=== PATIENT | female | born 1950 | race Caucasian/White ===

== ENCOUNTER 2018-05-03 20:12 | Inpatient (IN) | payer MEDICARE, BC ==
[~2018-05-03] VITALS: Ht 157.5 cm; Wt 80.9 kg
[2018-05-03] MEDS ORDERED: EFFEXOR37.5 MG PO (20:22)
[2018-05-03] MEDS ORDERED: GLUCOPHAGE500 MG PO (20:22)
[2018-05-03] MEDS ORDERED: SYNTHROID50 MCG PO (20:22)
[2018-05-03] MEDS ORDERED: IMITREX50 MG (20:23)
[2018-05-03] MEDS ORDERED: GABAPENTIN100 MG PO (20:23)
[2018-05-03] MEDS ORDERED: COREG6.25 MG PO (20:23)
[2018-05-03] MEDS ORDERED: LOPID600 MG PO (20:23)
[2018-05-03 21:35] LABS: BASOPHILS 0 % (0-2); EOSINOPHILS 0.5 % (0-7); HEMATOCRIT 35.3 % (36.0-48.0); IMMATURE GRANULOCYTES 0.2 % (0-5); LYMPHOCYTES 30.6 % (15-50); MCV 91.2 fL (80.0-100.0); MEAN PLATELET VOLUME 9.7 fL (7.4-10.4); MONOCYTES 8.1 % (2-11); NEUTROPHILS 60.6 % (40-80); PLATELET COUNT 244 10x3/uL (130-400); RBC 3.87 10x6/uL (4.00-5.40); RDW 13.1 % (11.5-14.5); WBC 6.2 10x3/uL (4.8-10.8)
[2018-05-03 21:39] LABS: APTT 24.8 SECONDS (22.8-39.4); INR 1.11 (0.85-1.17); PROTIME 13.8 SECONDS (11.6-15.0)
[2018-05-03 21:51] LABS: ALBUMIN 3.9 g/dL (3.4-5.0); ANION GAP 13.9 mmol/L (8-16); BILIRUBIN - TOTAL 0.42 mg/dL (0.2-1.3); CALCIUM 8.9 mg/dL (8.5-10.1); CARBON DIOXIDE 28.8 mmol/L (21.0-32.0); POTASSIUM - SERUM 3.7 mmol/L (3.5-5.1)
[2018-05-03 22:01] LABS: APPEARANCE CLEAR (CLEAR); BILIRUBIN NEGATIVE (NEGATIVE); COLOR YELLOW (YELLOW); GLUCOSE NEGATIVE (NEGATIVE); KETONE NEGATIVE (NEGATIVE); NITRITE NEGATIVE (NEGATIVE); PROTEIN NEGATIVE (NEGATIVE); UROBILINOGEN NORMAL (NORMAL)
[2018-05-03 22:29] VITALS: BP 150/80; Ht 157.5 cm; Wt 80.9 kg
--- NOTE | 2018-05-03 22:30 | NUR ---
RECIEVED PT TO FLOOR VIA STRETCHER. AT BEDSIDE. ADMITTED FOR PELVIC FX. PT UNABLE TO WALK WELL BECAUSE SHE IS UNABLE TO REALLY MOVE LEFT LEG. PT RECIEVING MORPHINE FOR PAIN 6/10 IN GROIN AREA, LOWER BACK AND LEFT HIP. IV RIGHT AC SL. DRESSING CDI, FLUSHES WELL. DENIES ANY COMPLAINTS OR NEEDS AT THIS TIME. CL IN REACH, WILL CONT TO MONITOR
[2018-05-04] VITALS: BP 150/80
[2018-05-04 04:00] VITALS: BP 105/59
--- NOTE | 2018-05-04 08:21 | NUR ---
LAYING FLAT IN BED, EVEN UNLABORED BREATHING, APPLIED ICE TO LEFT HIP, C/O PAIN IN LEFT HIP, PROVIDED ORAL HYDRATION, DENIES ANY OTHER NEEDS OR DISCOMFORTS, BED LOWERED AND LOCKED, CALL LIGHT WITHIN REACH. CPOC
[2018-05-04 08:42] VITALS: BP 94/31
[2018-05-04 08:47] LABS: BASOPHILS 0.2 % (0-2); EOSINOPHILS 1.5 % (0-7); HEMATOCRIT 34.9 % (36.0-48.0); HEMOGLOBIN 11.7 g/dL (12-16); IMMATURE GRANULOCYTES 0.2 % (0-5); LYMPHOCYTES 35.3 % (15-50); MCH 30.7 pg (26.0-34.0); MCHC 33.5 g/dL (31.0-37.0); MCV 91.6 fL (80.0-100.0); MEAN PLATELET VOLUME 9.8 fL (7.4-10.4); MONOCYTES 8.2 % (2-11); NEUTROPHILS 54.6 % (40-80); PLATELET COUNT 235 10x3/uL (130-400); RBC 3.81 10x6/uL (4.00-5.40); RDW 13.4 % (11.5-14.5); WBC 5.2 10x3/uL (4.8-10.8)
[2018-05-04 08:59] LABS: ANION GAP 13.5 mmol/L (8-16); CALCIUM 8.2 mg/dL (8.5-10.1); CARBON DIOXIDE 29.1 mmol/L (21.0-32.0); POTASSIUM - SERUM 3.6 mmol/L (3.5-5.1)
--- NOTE | 2018-05-04 09:31 | NUR ---
PATIENT WITH PELVIS FX AND ON BEDREST PER ORDER. SCD ORDERED PER POLICY/PROTOCOL FOR PATIENT.
--- NOTE | 2018-05-04 10:31 | NUR ---
DR. DAVIS ORDERED X-RAY OF THE ACETABULUM, AFTER SPEAKING WITH RADIOLOGY RECOMMENDED A CT OF THE HIP FOR A MORE DETAILED FEW, DR. DAVIS STATED HE WAS OKAY WITH EITHER ONE, BUT HE WILL NEED THAT BEFORE HE CAN FULLY CONSULT HER AND MAKE RECOMMENDATIONS FOR PLAN OF CARE.
[2018-05-04 11:08] LABS: % SATURATION 27 % (15-55); IRON 73 ug/dl (35-150); TOTAL IRON BIND CAPACITY 264 ug/dl (260-445); UNSAT IRON BIND CAPACITY 191 ug/dl (150-375)
[2018-05-04 13:36] VITALS: BP 128/67
[2018-05-04 17:42] VITALS: BP 148/69
--- NOTE | 2018-05-04 19:45 | NUR ---
PT LYING FLAT IN BED, NO SIGNS OF DISTRESS. ALERT AND ORIENTED. BS 114, NO COVERAGE PER SS. PT DENIES PAIN AT THIS TIME UNLESS SHE STARTS MOVING AROUND. PAIN 2/10. ASSISTING PT UP TO BATHROOM W/ WALKER. NO OTHER NEEDS. CL IN REACH, WILL CONTINUE TO MONITOR
[2018-05-04 21:20] VITALS: BP 143/65
[2018-05-05] VITALS (7 sets, daily range): BP systolic 120–164; BP diastolic 41–74
--- NOTE | 2018-05-05 01:30 | NUR ---
PT STATES PAIN 10/25. GAVE MORPHINE ORDERED W/ ZOFRAN. PT STATES PAIN MEDICATION MAKES HER NAUSEAS W/O IT
[2018-05-05 04:56] LABS: BASOPHILS 0 % (0-2); EOSINOPHILS 1.8 % (0-7); HEMATOCRIT 33.8 % (36.0-48.0); HEMOGLOBIN 11.3 g/dL (12-16); IMMATURE GRANULOCYTES 0.2 % (0-5); LYMPHOCYTES 33.7 % (15-50); MCH 30.9 pg (26.0-34.0); MCHC 33.4 g/dL (31.0-37.0); MCV 92.3 fL (80.0-100.0); MEAN PLATELET VOLUME 9.9 fL (7.4-10.4); MONOCYTES 7.5 % (2-11); NEUTROPHILS 56.8 % (40-80); PLATELET COUNT 235 10x3/uL (130-400); RBC 3.66 10x6/uL (4.00-5.40); RDW 13.3 % (11.5-14.5)
[2018-05-05 05:03] LABS: ANION GAP 12.5 mmol/L (8-16); CALCIUM 8.3 mg/dL (8.5-10.1); CARBON DIOXIDE 29.1 mmol/L (21.0-32.0); CREATININE - SERUM 0.9 mg/dL (0.6-1.3); POTASSIUM - SERUM 3.6 mmol/L (3.5-5.1)
--- NOTE | 2018-05-05 08:22 | NUR ---
PT RESTING IN BED. RESP EVEN AND UNLABORED. SALINE LOC TO RIGHT AC, PATENT WITHOUT REDNESS OR EDEMA. REPORTS PAIN TO LEFT HIP 08/25, BUT DENIES WISHES FOR MORPHINE. PT REQUESTING ORAL PAIN MED. INFORMED PT THAT STAFF WOULD NOTIFY MD REGARDING ORAL PAIN MED. PT DENIES FURTHER NEEDS AT THIS TIME. CL WITHIN REACH. ENCOURAGED TO CALL WITH NEEDS. CONTINUE POC.
--- NOTE | 2018-05-05 09:14 | NUR ---
PT REPORTS PAIN 10/10 AT THIS TIME, REQUESTING MORPHINE PAIN MEDICATION. ADMINISTERED PER MD ORDERS. INFORMED PT THAT STAFF HAD CONTACTED MD AND AWAITING CALL BACK FOR NEW ORDERS. PT VOICED UNDERSTANDING. WILL CONTINUE TO MONITOR.
--- NOTE | 2018-05-05 12:03 | NUR ---
PT BS TAKEN. 167. PT REFUSES PRN INSULIN AT THIS TIME.
--- NOTE | 2018-05-05 12:16 | NUR ---
Rehab Prescreening Consult recieved and the patient was visited. She meets criteria and agrees to participate in the required therapy. She will be accepted when the physician feels appropriate. Discussed with the CM and the HOT WORT SETTLER. Milvia Joe RN Clinical Liaison, Rehab
[2018-05-05] MEDS ORDERED: COLACE100 MG PO (13:36)
[2018-05-05] MEDS ORDERED: DURAGESIC1 PATCH .4 TRANSDERM (13:36)
[2018-05-05] MEDS ORDERED: MIRALAX17 GM PO (13:36)
[2018-05-05] MEDS ORDERED: HUMULIN REG INJ [BKC SC (13:36)
[2018-05-05] MEDS ORDERED: Morphine Sulfate IV (13:38)
[2018-05-05] MEDS ORDERED: NORCO-7.5 PO (13:38)
--- NOTE | 2018-05-05 14:10 | NUR ---
ASSISTED PT FROM BED TO BATHROOM AND BACK TO BED WITH WALKER NO WEIGHT BEARING TO THE LEFT LOWER EXTREMITY. PT DAVID WELL. WILL CONTINUE TO MONITOR.
--- NOTE | 2018-05-05 14:15 | MORECARE ---
CASE MANAGEMENT DISCHARGE SUMMARY PATIENT: ANDREAS LARSEN UNIT: [id number] ADM DATE: 05/03/18 AGE: 67 : 51 SEX: F ROOM/BED: D.2209 AUTHOR: JITENDRA MARTIN PHYSICIAN: REFERRING PHYSICIAN: CHRISTINA STROUD MD DATE OF SERVICE: 05/05/18 Discharge Plan Patient Name: ANDREAS LARSEN [facility] [facility] 1950 Planned Disposition: Inpatient Rehab Anticipated Discharge Date: Discharge Date: Expected LOS: Initial Reviewer: [email or web address] Initial Review Date: 05/03/2018 Generated: 05/05/18 3:15 pm DCPIA - Discharge Planning Initial Assessment Updated by [email or web address]: Talisha Wren on 05/05/18 2:13 pm * Is the patient Alert and Oriented? Yes * How many steps to enter\exit or inside your home? * PCP ROBERTO * Pharmacy [facility] [address] * Preadmission Environment Home with Family * ADLs Independent * Equipment None * List name and contact numbers for known caregivers / representatives who currently or will assist patient after discharge: MARYAM LARSEN () [phone] * Verbal permission to speak to the caregivers and representatives has been obtained from the patient. N/A * Community resources currently utilized None * Additional services required to return to the preadmission environment? Yes * Can the patient safely return to the preadmission environment? No * Has this patient been hospitalized within the prior 30 days at any hospital? No Patient Name: ANDREAS LARSEN Page [id number] at 1415 All edits/amendments must be made on the electronic document DICTATION DATE: 05/05/181413 RIDING COACH: WILFRED 05/05/18 141 RPT#: [id number] DC DATE: STATUS: ADM IN [facility] [address] [place] [address] END OF REPORT
--- NOTE | 2018-05-05 14:24 | MORECARE ---
CASE MANAGEMENT DISCHARGE SUMMARY PATIENT: ANDREAS LARSEN UNIT: [id number] ADM DATE: 05/03/18 AGE: 67 : 51 SEX: F ROOM/BED: D.2209 AUTHOR: VERONICADOC PHYSICIAN: REFERRING PHYSICIAN: CHRISTINA STROUD MD DATE OF SERVICE: 05/05/18 Discharge Plan Patient Name: ANDREAS LARSEN Facility: [facility]:[place] : 1950 Planned Disposition: Inpatient Rehab Anticipated Discharge Date: Discharge Date: Expected LOS: Initial Reviewer: [email or web address] Initial Review Date: 05/03/2018 Generated: 05/05/18 3:24 pm Comments DCP- Discharge Planning Updated by [email or web address]: Talisha Wren on 05/05/18 1:[address] Patient Name: ANDREAS LARSEN Admission Status: ER Accout number: [id number] Admission Date: 05-03-2018 : 1950 Admission Diagnosis: Attending: CHRISTINA STROUD Current LOS: 2 Anticipated DC Date: Planned Disposition: Inpatient Rehab Primary Insurance: MEDICARE A & B Discharge Planning Comments: CM met with patient to complete initial dc planning assessment. CM educated patient on the CM role and verbal consent given by patient to complete assessment. Patient lives at home with her where she was independent with her care. At discharge patient plans to go to [facility] inpatient rehab and feels this is a safe discharge. Patient luo not use or have any DME and will need a walker when she is discharged. Her will be her hire car driver home at [place]. Patient denied known discharge needs at this time. CM will continue to follow and will assist as needed with dc plans/needs. Gift Shop Clerk: Talisha Wren DCPIA - Discharge Planning Initial Assessment Updated by [email or web address]: aTlisha Wren on 05/05/18 2:13 pm * Is the patient Alert and Oriented? Yes * How many steps to enter\exit or inside your home? * PCP ROBERTO * Pharmacy [facility] [address] * Preadmission Environment Home with Family * ADLs Independent * Equipment None * List name and contact numbers for known caregivers / representatives who currently or will assist patient after discharge: MARYAM LARSEN () [phone] * Verbal permission to speak to the caregivers and representatives has been obtained from the patient. N/A * Community resources currently utilized None * Additional services required to return to the preadmission environment? Yes * Can the patient safely return to the preadmission environment? No * Has this patient been hospitalized within the prior 30 days at any hospital? No Last DP export: 05/05/18 1:15 p Patient Name: ANDREAS LARSEN Page [id number] at 1424 All edits/amendments must be made on the electronic document DICTATION DATE: 05/05/181422 CORE PILER: WILFRED 05/05/18 142 RPT#: [id number] DC DATE: STATUS: ADM IN [facility] [address] [place] [address] END OF REPORT
--- NOTE | 2018-05-05 16:37 | NUR ---
OT NOTE: PT COMPLETED BUE AROM EXS. PT COMPLETED SIDE ROLLING WITH EXTENDED TIME. PT COMPLETED HYGIENE TASK WITH SET UP. THANK YOU, JETHRO CAMPUZANO
--- NOTE | 2018-05-05 20:15 | NUR ---
REPORTS PAIN. INFORMED PT SHE WAS EXPECTED TO GO TO REHAB IN AM AND IT WOULD BE [place] TO TRY PO PAIN MEDS TO ASSESS FOR ADEQUATE PAIN CONTROL. PT AGREED. WILL CONTINUE TO MONITOR.
[2018-05-06 01:38] VITALS: BP 135/73
--- NOTE | 2018-05-06 04:08 | NUR ---
RESTING IN BED RESPRATION EVEN AND UNLABORED CALL LIGHT IN REACH NO S/S OF DISTRESS.
[2018-05-06 05:03] VITALS: BP 124/65
[2018-05-06 07:23] LABS: BASOPHILS 0 % (0-2); EOSINOPHILS 1.6 % (0-7); HEMATOCRIT 32.8 % (36.0-48.0); HEMOGLOBIN 10.9 g/dL (12-16); IMMATURE GRANULOCYTES 0.2 % (0-5); LYMPHOCYTES 35.3 % (15-50); MCH 30.6 pg (26.0-34.0); MCHC 33.2 g/dL (31.0-37.0); MCV 92.1 fL (80.0-100.0); MEAN PLATELET VOLUME 9.2 fL (7.4-10.4); MONOCYTES 11.4 % (2-11); NEUTROPHILS 51.5 % (40-80); PLATELET COUNT 188 10x3/uL (130-400); RBC 3.56 10x6/uL (4.00-5.40); RDW 13.1 % (11.5-14.5); WBC 4.3 10x3/uL (4.8-10.8)
[2018-05-06 07:31] LABS: ANION GAP 12.3 mmol/L (8-16); CALCIUM 8.3 mg/dL (8.5-10.1); CARBON DIOXIDE 29.5 mmol/L (21.0-32.0); CREATININE - SERUM 0.9 mg/dL (0.6-1.3); POTASSIUM - SERUM 3.8 mmol/L (3.5-5.1)
--- NOTE | 2018-05-06 08:10 | NUR ---
PT RESTING IN BED NO ACUTE DISTRESS NOTED. LEFT ARM IN SLING. DRESSING TO LEFT SHOULDER C/D/I. BRUISING NOTED TO LEFT UPPER EXTREMITY. REPORTS PAIN 4/10 AT THIS TIME, DENYING NEED FOR PAIN MEDICATION. IV TO RIGHT UPPER ARM SALINE LOC'D AT THIS TIME, EASILY FLUSHES, GOOD BLOOD RETURN. SCD'S ON BILATERALLY. DENIES FURTHER NEEDS AT THIS TIME. CL WITHIN REACH. ENCOURAGED TO CALL WITH NEEDS. CONTINUE POC
--- NOTE | 2018-05-06 08:33 | NUR ---
PT RESTING QUIETLY IN BED HAVING BREAKFAST. NO ACUTE DISTRESS NOTED. REPORTS PAIN 3/10 AT THIS TIME WHEN NOT MOVING OR AMBULATING. SALINE LOC TO RIGHT AC INTACT, SITE WITHOUT REDNESS OR EDEMA. DENIES FURTHER NEEDS AT THIS TIME. CL WITHIN REACH. ENCOURAGED TO CALL WITH NEEDS. CONTINUE POC
[2018-05-06 08:51] VITALS: BP 117/49
[2018-05-06 09:17] LABS: FOLATE (FOLIC ACID) - SERUM 15.6 ng/mL (>3.0)
--- NOTE | 2018-05-06 09:59 | NUR ---
PT REPORTS PAIN 5/10 AT THIS TIME AFTER AMBULATIN TO AND FROM RESTROOM. ORAL PAIN MEDICATION ADMINISTERED PER MD ORDERS. DENIES FURTHER NEEDS AT THIS TIME. ENCOURAGED TO CALL WITH NEEDS. WILL CONTINUE TO MONITOR.
--- NOTE | 2018-05-06 10:01 | NUR ---
PT RESTING IN BED. C/O PAIN TO LEFT SHOULDER VOICING PAIN 09/24 AT THIS TIME. PAIN MEDICATION ADMINISTERED PER MD ORDERS. WILL CONTINUE TO MONITOR.
--- NOTE | 2018-05-06 11:32 | NUR ---
PT BS TAKEN AT THIS TIME. RESTING IN BED WITH FAMILY AT BEDSIDE. VOICES PAIN 3/10 AT THIS TIME. DENIES FURTHER NEEDS AT THIS TIME. CL WITHIN REACH. ENCOURAGED TO CALL WITH NEEDS. CONTINUE TO MONITOR.
--- NOTE | 2018-05-06 11:45 | NUR ---
OT NOTE: PT PERFORMED BED MOB WITH MOD ASSIST FOR INITIAL SUPINE TO SIT; AMB TO BATHROOM WITH WALKER AND MIN ASSIST. REPORTS PAIN 7/10 AT THIS TIME. ABLE TO PERFORM TOILETING WITH MIN ASSIST; ABLE TO PERFORM FULL SHOWER WITH MIN ASSIST; AMB BACK TO BED WITH MIN ASSIST AND USE OF WALKER. GROOMING WITH SET UP; MOD ASSIST WITH DONNING SOCKS. ANTIONETTE SHERWOOD, OTR/L
--- NOTE | 2018-05-06 11:54 | NUR ---
PT SALINE LOC D/C'D FROM RIGHT AC IN PREPARATION TO D/C TO REHAB. CATH INTACT. DISCHARGE INSTRUCTIONS GIVEN WITH MEDICATION REC. ALL PERSONAL BELONGINGS BEING PACKED BY SPOUSE TO BE TRANSFERED WITH PT. DENIES QUESTIONS OR CONCERNS AT THIS TIME.
--- NOTE | 2018-05-06 13:16 | MORECARE ---
CASE MANAGEMENT DISCHARGE SUMMARY PATIENT: ANDREAS LARSEN UNIT: [id number] ADM DATE: 05/03/18 AGE: 67 : 51 SEX: F ROOM/BED: D.2209 AUTHOR: VERONICADOC PHYSICIAN: REFERRING PHYSICIAN: CHRISTINA STROUD MD DATE OF SERVICE: 05/06/18 Discharge Plan Patient Name: ANDREAS LARSEN Facility: [facility]:[place] : 1950 Planned Disposition: Inpatient Rehab Anticipated Discharge Date: Discharge Date: 05/06/2018 Expected LOS: Initial Reviewer: [email or web address] Initial Review Date: 05/03/2018 Generated: 05/06/18 2:16 pm Comments DCP- Discharge Planning Updated by [id number]: Talisha Wren on 05/06/18 12:[address] patient discharging to inpatient rehab @ [facility] imm served and explained DCP- Discharge Planning Updated by [email or web address]: Talisha Wren on 05/05/18 1:[address] Patient Name: ANDREAS LARSEN Admission Status: ER Accout number: [id number] Admission Date: 05-03-2018 : 1950 Admission Diagnosis: Attending: CHRISTINA STROUD Current LOS: 2 Anticipated DC Date: Planned Disposition: Inpatient Rehab Primary Insurance: MEDICARE A & B Discharge Planning Comments: CM met with patient to complete initial dc planning assessment. CM educated patient on the CM role and verbal consent given by patient to complete assessment. Patient lives at home with her where she was independent with her care. At discharge patient plans to go to [facility] inpatient rehab and feels this is a safe discharge. Patient luo not use or have any DME and will need a walker when she is discharged. Her will be her guard driver home at [place]. Patient denied known discharge needs at this time. CM will continue to follow and will assist as needed with dc plans/needs. Human Resources Hr Representative: Talisha Wren DCPIA - Discharge Planning Initial Assessment Updated by [email or web address]: Talisha Wren on 05/05/18 2:13 pm * Is the patient Alert and Oriented? Yes * How many steps to enter\exit or inside your home? * PCP ROBERTO * Pharmacy [facility] [address] * Preadmission Environment Home with Family * ADLs Independent * Equipment None * List name and contact numbers for known caregivers / representatives who currently or will assist patient after discharge: MARYAM LARSEN () [phone] * Verbal permission to speak to the caregivers and representatives has been obtained from the patient. N/A * Community resources currently utilized None * Additional services required to return to the preadmission environment? Yes * Can the patient safely return to the preadmission environment? No * Has this patient been hospitalized within the prior 30 days at any hospital? No Coverage Notice Reviewer: [email or web address] Aby Wren Notice Issued Date-Time: 05/06/2018 10:45 Notice Type: IM Discharge Notice Notice Delivered To: Patient Relationship to Patient: Devil Tender Name: Delivery Method: - Kristine Days: Prior Verbal Notification: Recipient Understood Notice: Recipient Signature: Med Rec Note Co-signed by Attending: Coverage Notice Comment: Last DP export: 05/05/18 1:24 p Patient Name: ANDREAS LARSEN Page [id number] at 1316 All edits/amendments must be made on the electronic document DICTATION DATE: 05/06/18 1316 TECHNICAL MANAGER CHEMICAL PLANT: WILFRED 05/06/18 1316 RPT#: [id number] DC DATE:05/06/18 STATUS: DIS IN [facility] [address] [place] [address] END OF REPORT
--- NOTE | 2018-05-07 17:49 | MORECARE ---
CASE MANAGEMENT DISCHARGE SUMMARY PATIENT: ANDREAS LARSEN UNIT: [id number] ADM DATE: 05/03/18 AGE: 67 : 51 SEX: F ROOM/BED: D.2209 AUTHOR: JITENDRA MARTIN PHYSICIAN: REFERRING PHYSICIAN: CHRISTINA STROUD MD DATE OF SERVICE: 05/07/18 Discharge Plan Patient Name: ANDREAS LARSEN Facility: [facility]:[place] : 1950 Planned Disposition: Inpatient Rehab Anticipated Discharge Date: Discharge Date: 05/06/2018 Expected LOS: 0 Initial Reviewer: [email or web address] Initial Review Date: 05/03/2018 Generated: 05/07/18 6:49 pm Comments DCP- Discharge Planning Updated by [email or web address]: Talisha Wren on 05/06/18 12:[address] patient discharging to inpatient rehab @ [facility] imm served and explained DCP- Discharge Planning Updated by [email or web address]: Talisha Wren on 05/05/18 1:[address] Patient Name: ANDREAS LARSEN Admission Status: ER Accout number: [id number] Admission Date: 05-03-2018 : 1950 Admission Diagnosis: Attending: CHRISTINA STROUD Current LOS: 2 Anticipated DC Date: Planned Disposition: Inpatient Rehab Primary Insurance: MEDICARE A & B Discharge Planning Comments: CM met with patient to complete initial dc planning assessment. CM educated patient on the CM role and verbal consent given by patient to complete assessment. Patient lives at home with her where she was independent with her care. At discharge patient plans to go to [facility] inpatient rehab and feels this is a safe discharge. Patient luo not use or have any DME and will need a walker when she is discharged. Her will be her driver medic home at [place]. Patient denied known discharge needs at this time. CM will continue to follow and will assist as needed with dc plans/needs. Rotary Cutter Feeder: Talisha Wren DCPIA - Discharge Planning Initial Assessment Updated by [email or web address]: Talisha Wren on 05/05/18 2:13 pm * Is the patient Alert and Oriented? Yes * How many steps to enter\exit or inside your home? * PCP ROBERTO * Pharmacy [facility] [address] * Preadmission Environment Home with Family * ADLs Independent * Equipment None * List name and contact numbers for known caregivers / representatives who currently or will assist patient after discharge: MARYAM LARSEN () [phone] * Verbal permission to speak to the caregivers and representatives has been obtained from the patient. N/A * Community resources currently utilized None * Additional services required to return to the preadmission environment? Yes * Can the patient safely return to the preadmission environment? No * Has this patient been hospitalized within the prior 30 days at any hospital? No Coverage Notice Reviewer: [email or web address] Aby Wren Notice Issued Date-Time: 05/06/2018 10:45 Notice Type: IM Discharge Notice Notice Delivered To: Patient Relationship to Patient: Bioinformatician Name: Delivery Method: - Kristine Days: Prior Verbal Notification: Recipient Understood Notice: Recipient Signature: Med Rec Note Co-signed by Attending: Coverage Notice Comment: Last DP export: 05/06/18 12:16 p Patient Name: ANDREAS LARSEN Page [id number] at 1749 All edits/amendments must be made on the electronic document DICTATION DATE: 05/07/181748 CONTINUOUS WASHER OPERATOR: WILFRED 05/07/181748 RPT#: [id number] DC DATE:05/06/18 STATUS: DIS IN [facility] [address] [place] [address] END OF REPORT
== END 2018-05-06 12:32 | DRG 536 ==
LOC: D.ER 20:12 → D.MS 21:12
PROVIDERS: Emergency Medicine; ADMIT Internal Medicine Nephrology
DX: S32.512A Fracture of superior rim of left pubis, initial encounter for closed fracture (principal); W19.XXXA Unspecified fall, initial encounter; I10 Essential (primary) hypertension; E11.9 Type 2 diabetes mellitus without complications; D64.9 Anemia, unspecified

== ENCOUNTER 2018-05-06 12:39 | Inpatient (IN) | payer MEDICARE, BC ==
[~2018-05-06] VITALS: Ht 157.5 cm; Wt 83.0 kg
--- NOTE | 2018-05-06 12:10 | NUR ---
RECIEVED FROM ACUTE FLOOR TO ROOM 1110 FOR REHAB.ORIENTED TO ROOM AND SURROUNDINGS.CL IN REACH.
[~2018-05-06 12:39] MED LIST: COLACE100 MG PO; COREG6.25 MG PO; DURAGESIC1 PATCH .4 TRANSDERM; EFFEXOR37.5 MG PO; GABAPENTIN100 MG PO; GLUCOPHAGE500 MG PO; HUMULIN REG INJ [BKC SC; IMITREX50 MG; LOPID600 MG PO; MIRALAX17 GM PO; Morphine Sulfate IV; NORCO-7.5 PO; SYNTHROID50 MCG PO
[2018-05-06 13:43] VITALS: BP 114/54; BMI 32.4
[2018-05-06 14:08] VITALS: Ht 157.5 cm; Wt 83.0 kg
--- NOTE | 2018-05-06 19:19 | NUR ---
AWAKE AND ALERT. RESPIRATIONS UNLABORED. NO DISTRESS NOTED.
[2018-05-06 19:58] VITALS: BP 144/61
--- NOTE | 2018-05-07 06:00 | NUR ---
PATIENT IS ALERT/ORIENT. CALL LIGHT WITHIN REACH. PATIENT VOICES NO NEEDS AT THIS TIME. WILL CONTINUE WITH PLAN OF CARE
--- NOTE | 2018-05-07 06:32 | NUR ---
QUIET HOURS. RESTED WELL. ASSISTED UP TO BATHROOM. MOD ASSIST. BACK TO BED. NO ACUTE DISTRESS NOTED.
--- NOTE | 2018-05-07 07:45 | NUR ---
AWAKE AND A&O X4.CL IN REACH.DENIES NEEDS.
[2018-05-07 08:00] VITALS: BP 138/64
[2018-05-07 08:10] LABS: BASOPHILS 0.3 % (0-2); EOSINOPHILS 1.3 % (0-7); HEMOGLOBIN 11.2 g/dL (12-16); IMMATURE GRANULOCYTES 0.3 % (0-5); LYMPHOCYTES 43.4 % (15-50); MCH 30.6 pg (26.0-34.0); MCHC 32.9 g/dL (31.0-37.0); MCV 92.9 fL (80.0-100.0); MONOCYTES 10.4 % (2-11); NEUTROPHILS 44.3 % (40-80); RBC 3.66 10x6/uL (4.00-5.40); RDW 13.4 % (11.5-14.5); WBC 3.8 10x3/uL (4.8-10.8)
[2018-05-07 08:11] LABS: ANION GAP 12.3 mmol/L (8-16); CALCIUM 8.6 mg/dL (8.5-10.1); CARBON DIOXIDE 30.2 mmol/L (21.0-32.0); CREATININE - SERUM 0.9 mg/dL (0.6-1.3); PLATELET COUNT 237 10x3/uL (130-400); POTASSIUM - SERUM 3.5 mmol/L (3.5-5.1)
--- NOTE | 2018-05-07 09:00 | NUR ---
PATIENT REQUESTED PRN PAIN MEDICATION BEFORE GOING TO THERAPY. PRN NORCO GIVEN.
--- NOTE | 2018-05-07 10:06 | NUR ---
PATIENT INCONTINANT OF URINE. CHANGED BY THIS NURSE. TOTAL ASST WITH CARE
--- NOTE | 2018-05-07 16:29 | NUR ---
PATIENT ADMITTED TO REHAB FROM ACUTE FLOOR. HER PCP IS DR. MEJIA. DISCHARGE PLANS ARE FOR HER TO RETURN HOME WITH HER SPOUSE. SHE HAS NO OUTSIDE SERVICES OR ANY DME AT THIS TIME. WILL CONTINUE TO FOLLOW WITH PATIENT AND WILL ASSIST WITH DISCHARGE NEEDS.
--- NOTE | 2018-05-07 16:55 | NUR ---
PATIENT RESTING IN BED AFTER THERAPY. VOICES NO NEEDS AT THIS TIME.
--- NOTE | 2018-05-07 20:00 | NUR ---
PATIENT IS SLEEPING. NO SIGNS OF DISTRESS. BED IS DOWN LOW WITH SIDE RAILS UP X2 AND CALL LIGHT IS IN REACH.
--- NOTE | 2018-05-07 22:22 | NUR ---
PATIENT IS RESTING IN HER BED. BED IS DOWN LOW. CALL LIGHT IS IN REACH.
[2018-05-08 08:00] VITALS: BP 146/66
--- NOTE | 2018-05-08 08:00 | NUR ---
PATIENT IS ALERT/ORIENT. CALL LIGHT WITHIN REACH. VOICES NO NEEDS AT THIS TIME. WILL CONTINUE WITH PLAN OF CARE
--- NOTE | 2018-05-08 10:05 | NUR ---
PRN PAIN MEDICATION GIVEN PER PATIENT REQUEST BEFORE THERAPY
--- NOTE | 2018-05-08 11:41 | NUR ---
PATIENT IN REHAB ROOM. WORKING WITH PHYSICAL THERAPIST. DENIES ANY PAIN/DISC AT THIS TIME.
--- NOTE | 2018-05-08 15:29 | NUR ---
DR SANDY OFFICE CALLED. NEW ORDERS RECEIVED
--- NOTE | 2018-05-08 19:51 | NUR ---
THE PATIENT WAS WATCHING TELEVISION WHEN STAFF ENTERED HER ROOM. BED IS IN THE LOW POSITION WITH SIDERAILS X2 AND CALL LIGHT WITHIN REACH. THE PATIENT DEMONSTRATES APPROPRIATE USE OF A CALL LIGHT. THE PATIENT APPEARS COMFORTABLE WITH NO QUESTIONS OR CONCERNS AT THSI TIME.
[2018-05-08 20:45] VITALS: BP 153/69
--- NOTE | 2018-05-09 01:54 | NUR ---
THE PATIENT APPEARS TO BE SLEEPING COMFORTABLY. BED IS IN THE LOW POSITION WITH SIDERAILS X2 AND CALL LIGHT WITHIN REACH.
[2018-05-09 06:50] LABS: CALC OSMOLALITY 284 mosm/kg (275-300); CALCIUM 8.7 mg/dL (8.5-10.1); CARBON DIOXIDE 27.1 mmol/L (21.0-32.0); CHLORIDE - SERUM 102 mmol/L (98-107); CREATININE - SERUM 0.8 mg/dL (0.6-1.3); GLUCOSE 104 mg/dL (74-106); POTASSIUM - SERUM 3.7 mmol/L (3.5-5.1); SODIUM 142 mmol/L (136-145); UREA NITROGEN 18 mg/dL (7-18); eGFR NON AFRICAN AMERICAN 76 mL/min (90-120)
[2018-05-09 06:51] LABS: BASOPHILS 0.2 % (0-2); EOSINOPHILS 1.1 % (0-7); HEMATOCRIT 34.3 % (36.0-48.0); HEMOGLOBIN 11.3 g/dL (12-16); IMMATURE GRANULOCYTES 0.2 % (0-5); LYMPHOCYTES 54.5 % (15-50); MCH 30.5 pg (26.0-34.0); MCHC 32.9 g/dL (31.0-37.0); MCV 92.5 fL (80.0-100.0); MEAN PLATELET VOLUME 9.6 fL (7.4-10.4); MONOCYTES 8.6 % (2-11); NEUTROPHILS 35.4 % (40-80); PLATELET COUNT 277 10x3/uL (130-400); RBC 3.71 10x6/uL (4.00-5.40); RDW 13.3 % (11.5-14.5); WBC 4.4 10x3/uL (4.8-10.8)
--- NOTE | 2018-05-09 12:27 | NUR ---
PT RESTING IN BED WITH EYES OPEN CALL LIGHT IN REACH WILL MONITER
--- NOTE | 2018-05-09 14:25 | NUR ---
Patient discharging home in am. she declines home health at this time. [employer] will deliver a wheelchair to patient for home use. Dr. Pruitt 05/19/18 @ 8:15, Dr. Hood 05/26/18 @ 3:15. Patient choice form and IM[facility] forms signed, copy given to patient and filed in chart. discharge instructions with fim data faxed to pcp.
--- NOTE | 2018-05-09 19:57 | NUR ---
THE PATIENT WAS WATCHING TELEVISION WHEN STAFF ENTERED HER ROOM. BED ISW IN THE LOW POSITION WITH SIDERAILS X2 AND CALL LIGHT WITHIN REACH. THE PATIENT WAS EDUCATED TO CALL FOR ASSISTANCE WHEN SHE NEEDS TO GET OUT OD BED. THE PATIENT DEMONSTRATES UNDERSTANDING VIA TEACHBACK METHOD. THE PATIENT APPEARS COMFORTABLE WITH NO QUESTIONS OR CONCERNS AT THIS TIME.
[2018-05-09 21:00] VITALS: BP 141/75
--- NOTE | 2018-05-10 03:46 | NUR ---
THE PATIENT APPEARS TO BE SLEEPING COMFORTABLY. BED IN THE LO WPOSITION WITH SIDERAILS X2 AND CALL LIGHT WITHIN REACH.
--- NOTE | 2018-05-10 07:31 | NUR ---
PATIENT IS ALERT/ORIENT. CALL LIGHT WITHIN REACH. VOICES NO NEEDS AT THIS TIME. PLAN TO DISCHARGE HOME TODAY
[2018-05-10 08:22] VITALS: BP 159/96
--- NOTE | 2018-05-10 10:00 | NUR ---
DENIES NEEDS.CL IN REACH.PLAN DC HOME TODAY.
--- NOTE | 2018-05-10 10:00 | NUR ---
[facility] CALLED IN REGARDS TO PATIENT WANTING A SMALLER WHEELCHAIR. PATIENT STATES WHEELCHAIR WILL NOT FIT THROUGH DOORWAYS IN HER HOUSE.
[2018-05-10] MEDS ORDERED: DURAGESIC1 PATCH .7 TRANSDERM (11:06)
[2018-05-10] MEDS ORDERED: NORCO-7.5 PO (11:06)
--- NOTE | 2018-05-10 11:07 | RHP ---
PATIENT: ANDREAS LARSEN MEDICAL RECORD: [id number] ACCOUNT: [id number] [facility] Debra[facility]10 : [birth year] ADMISSION DATE: 05/06/18 REHABILITATION HISTORY AND PHYSICAL EXAMINATION POST ADMISSION PHYSICIAN EXAMINATION ADMITTING DIAGNOSIS: Left superior and inferior pubic rami fractures. HISTORY OF PRESENT ILLNESS: The patient is a 67-year-old female admitted with the left superior and inferior pubic ramus fracture after a fall on 7-8 feet off her porch. Apparently, she states her dog knocked her off her porch approximately 7-8 feet fall. She landed on the ground and felt immediate pain and onset of left hip pain. The pain did radiate around to her groin. She was no longer able to ambulate secondary to pain. She denied any loss of consciousness. She was tender to palpate over the left groin, any range of movement produced pretty severe pain. X-ray showed a left superior and inferior pubic rami fractures. She was admitted for ortho consult. [place] like there was no surgical intervention warranted at this time, recommended pain control. Her left lower extremity is toe-touch weightbearing with a walker at this time. Physical therapy was begun to progressive mobilization. Previously, she was completely independent with ADLs and mobility without aid. Currently, she is mod-to-max assist for ADLs and mobility secondary to irretractable left hip pain and toe-touch weightbearing on her left leg. She wants to regain her strength, so she can return home and get back to her prior level of functioning. COMORBIDITIES: In this patient include pelvic fracture, diabetes, hypertension, hypothyroidism, fall, hypercholesterolemia, hyperglycemia, irretractable pain, and history of thyroid cancer. PAST MEDICAL HISTORY: Significant for thyroid problems, hypertension, hypercholesterolemia, history of thyroid cancer. PAST SURGICAL HISTORY: Includes appendix removed and also hysterectomy. ALLERGIES: No known drug allergies. CURRENT MEDICATIONS: Include a Duragesic patch 12 mcg, polyethylene glycol 17 grams in 8 ounces of water daily. She is on Effexor 225 mg along with 100, which will be for 325 daily. She is on gemfibrozil 600 mg b.i.d., Astatula 7.5 one tab q.4 hours p.r.n., Colace 100 mg b.i.d., Metformin 500 mg b.i.d. with meals, Neurontin 300 mg b.i.d., and carvedilol 6.25 mg b.i.d. with meals. HABITS: No current alcohol or tobacco use. FAMILY HISTORY: Noncontributory. SOCIAL HISTORY: The patient hopes to return back home and get back to her prior level of functioning. REVIEW OF SYSTEMS: GENERAL: Denies weakness or fatigue. HEENT: Denies cold, cough, or congestion. CARDIOVASCULAR: Denies chest pain. PHYSICAL EXAMINATION: HISTORY AND PHYSICAL [id number] ANDREAS LARSEN VITAL SIGNS: Stable, afebrile. GENERAL: Somewhat obese female, in no acute distress, alert upon exam. HEENT: Normocephalic and atraumatic. Mucosa moist. NECK: Supple without adenopathy. LUNGS: Clear at this time. HEART: Regular rate and rhythm. No murmurs, rubs, or gallops. ABDOMEN: Benign. EXTREMITIES: No clubbing, cyanosis, or edema. NEUROLOGIC: She is mainly intact. She does have pain to palpation over in her groin region. LABORATORY DATA: White count is 3.8, H&H of 11 and 34, and platelet count is 237. Her sodium is 142, potassium 3.5, BUN and creatinine of 18 and 0.9, and blood sugar was noted to be 120. ASSESSMENT: This 67-year-old female patient admitted to rehab with a working diagnosis superior and inferior pubic ramus fracture. The patient has potential to make improvement. We instituted the following multidisciplinary therapies including, but not limited to physical, occupational, respiratory, speech, nutritional services, prosthetics, and orthotics. Given her complex medical condition and risk for more complications, rehabilitation services cannot be provided at a low level of care such as a skilled nurse facility. PLAN: 1. Admit to [facility] rehab for inpatient therapy to include the following disciplines: A. Physical therapy to improve gait, all transfer skills and bed mobility to a modified independent level. B. Occupational therapy to improve activities of daily living to a modified independent level. C. Case management to assist with discharge planning and placement options. D. Nutrition to assist with nutritional needs. E. Rehabilitation nursing to assist in monitoring the patient's underlying medical conditions and to assist with any type of bowel or bladder management. 2. The patient's current medication and medical care will be continued. 3. The patient will be placed on standard fall precautions. 4. The patient's estimated length of stay is approximately 7-10 days. 5. We will discuss this patient during care team staff meeting this week. TRANSINT:[id number] Voice Confirmation ID: [id number] DOCUMENT ID: [id number] EAMON notes whether there has been none or any medical/functional change since admission: - No change since prescreen. EAMON attests patient continues to be appropriate for IRF: - Continues to be appropriate. HISTORY AND PHYSICAL [id number] ANDREAS LARSEN SCOTT MD at 1107 CC: [id number] DICTATION DATE: 05/07/18 0833 GROCERY CARRIER: 05/07/18 0913 ADM IN [place] [id number] [place] [address]
--- NOTE | 2018-05-10 14:50 | NUR ---
DISCHARGE INSTRUCTIONS GONE OVER WITH PATIENT. PATIENT HAS ALL MEDICATIONS AND PRESCRIPTIONS NEEDED.
--- NOTE | 2018-05-10 15:47 | NUR ---
ALLYSON BROUGHT SMALLER WHEELCHAIR TO PATIENT
--- NOTE | 2018-05-10 15:58 | NUR ---
HERE TO TAKE PATIENT HOME. HELPED OUT TO CAR BY STAFF
== END 2018-05-10 16:43 | disposition home or self-care (01) | DRG 561 ==
LOC: D.REHAB 12:39
PROVIDERS: ADMIT Emergency Medicine
DX: S32.502D Unspecified fracture of left pubis, subsequent encounter for fracture with routine healing (principal); I10 Essential (primary) hypertension; E03.9 Hypothyroidism, unspecified; W19.XXXD Unspecified fall, subsequent encounter; D64.9 Anemia, unspecified; E11.65 Type 2 diabetes mellitus with hyperglycemia; Z85.850 Personal history of malignant neoplasm of thyroid

== ENCOUNTER 2019-11-06 15:02 | Inpatient (IN) | payer MEDICARE, BC ==
[~2019-11-06] VITALS: Ht 157.5 cm; Wt 82.5 kg
[~2019-11-06 15:02] MED LIST changes: +DURAGESIC1 PATCH .7 TRANSDERM
[2019-11-06] MEDS ORDERED: ALBUTEROL SULF8.5 GM INH (15:20)
[2019-11-06] MEDS ORDERED: MEDROL DOSE PACK4 MG PO (15:20)
--- NOTE | 2019-11-06 15:34 | NUR ---
PT STATES SHE JUST HAS NOT FELT WELL, COVID TEST PENDING. TOOK TYLENOL TODAY FOR HER FEVER.
[2019-11-06 15:46] LABS: BASOPHILS 0.1 % (0-2); EOSINOPHILS 0 % (0-7); HEMATOCRIT 37.2 % (36.0-48.0); HEMOGLOBIN 12.5 g/dL (12-16); IMMATURE GRANULOCYTES 0.5 % (0-5); MCHC 33.6 g/dL (31.0-37.0); MCV 89.2 fL (80.0-100.0); MEAN PLATELET VOLUME 9.4 fL (7.4-10.4); MONOCYTES 5.3 % (2-11); NEUTROPHILS 79.1 % (40-80); PLATELET COUNT 303 10x3/uL (130-400); RBC 4.17 10x6/uL (4.00-5.40); RDW 13.4 % (11.5-14.5); WBC 8.9 10x3/uL (4.8-10.8)
[2019-11-06 15:55] LABS: CALC OSMOLALITY 270 mosm/kg (275-300); CALCIUM 8.7 mg/dL (8.5-10.1); CARBON DIOXIDE 29.2 mmol/L (21.0-32.0); CHLORIDE - SERUM 97 mmol/L (98-107); CREATININE - SERUM 0.8 mg/dL (0.6-1.3); POTASSIUM - SERUM 3.6 mmol/L (3.5-5.1); SODIUM 133 mmol/L (136-145); UREA NITROGEN 14 mg/dL (7-18); eGFR NON AFRICAN AMERICAN 75 mL/min (90-120)
[2019-11-06 16:00] LABS: GLUCOSE 173 mg/dL (74-106)
[2019-11-06 16:01] LABS: APTT 25.6 SECONDS (22.8-39.4); INR 1.05 (0.85-1.17); PROTIME 13.6 SECONDS (11.6-15.0)
[2019-11-06 16:10] LABS: ALBUMIN 3.1 g/dL (3.4-5.0); ALKALINE PHOSPHATASE 175 U/L (30-120); ALT (SGPT) 79 U/L (10-68); BILIRUBIN - TOTAL 0.73 mg/dL (0.2-1.3); CKMB 0.2 U/L (0.0-3.6); CREATINE KINASE 50 UL (21-215); PRO BNP 652 pg/mL (0-125); PROTEIN - SERUM 8.1 g/dL (6.4-8.2)
[2019-11-06 16:13] LABS: TROPONIN-I < 0.017 ng/mL (0.000-0.060)
[2019-11-06 19:37] VITALS: BP 176/90
--- NOTE | 2019-11-06 20:47 | NUR ---
URINE SAMPLE OBTAINED AND SENT TO LAB.
--- NOTE | 2019-11-06 20:47 | NUR ---
REPORT RECEIVED, PT CARE ASSUMED. AWAITING PT'S ARRIVAL TO ROOM 3830.
[2019-11-06 20:55] LABS: BILIRUBIN NEGATIVE (NEGATIVE); KETONE NEGATIVE (NEGATIVE); NITRITE NEGATIVE (NEGATIVE); UROBILINOGEN NORMAL (NORMAL)
[2019-11-06] MEDS ORDERED: PRISTIQ100 MG PO (22:28)
[2019-11-06] MEDS ORDERED: VASCEPA1 GM PO (22:30)
[2019-11-06] MEDS ORDERED: LEVSINEX/LEV0.375 M1 PO (22:31)
[2019-11-06 22:39] VITALS: BP 175/87; BMI 33.3
--- NOTE | 2019-11-07 03:49 | NUR ---
FLU AND COVID SWAB DONE AND TAKEN TO LAB
[2019-11-07 05:59] LABS: BASOPHILS 0.2 % (0-2); EOSINOPHILS 0 % (0-7); HEMATOCRIT 35.5 % (36.0-48.0); HEMOGLOBIN 11.6 g/dL (12-16); IMMATURE GRANULOCYTES 0.5 % (0-5); LYMPHOCYTES 11.4 % (15-50); MCH 29.7 pg (26.0-34.0); MCHC 32.7 g/dL (31.0-37.0); MCV 90.8 fL (80.0-100.0); MEAN PLATELET VOLUME 9.5 fL (7.4-10.4); NEUTROPHILS 82.9 % (40-80); PLATELET COUNT 289 10x3/uL (130-400); RBC 3.91 10x6/uL (4.00-5.40); RDW 13.4 % (11.5-14.5); WBC 8.4 10x3/uL (4.8-10.8)
[2019-11-07 06:50] LABS: ALBUMIN 2.6 g/dL (3.4-5.0); ALKALINE PHOSPHATASE 154 U/L (30-120); ALT (SGPT) 76 U/L (10-68); BILIRUBIN - TOTAL 0.37 mg/dL (0.2-1.3); CALC OSMOLALITY 278 mosm/kg (275-300); CALCIUM 7.9 mg/dL (8.5-10.1); CARBON DIOXIDE 25.1 mmol/L (21.0-32.0); CHLORIDE - SERUM 100 mmol/L (98-107); CREATININE - SERUM 0.8 mg/dL (0.6-1.3); GLUCOSE 237 mg/dL (74-106); MAGNESIUM - SERUM 1.8 mg/dL (1.8-2.4); PHOSPHOROUS 2.6 mg/dL (2.5-4.9); POTASSIUM - SERUM 3.7 mmol/L (3.5-5.1); PROTEIN - SERUM 7.5 g/dL (6.4-8.2); SODIUM 135 mmol/L (136-145); UREA NITROGEN 15 mg/dL (7-18); eGFR NON AFRICAN AMERICAN 75 mL/min (90-120)
--- NOTE | 2019-11-07 07:30 | NUR ---
PT RESTING IN BED, PERSONAL ITEMS WITHIN REACH, CALL LIGHT IS WITHIN REACH.
[2019-11-07 09:07] VITALS: BP 145/81
[2019-11-07 10:25] VITALS: Ht 157.5 cm; Wt 82.5 kg
[2019-11-07 13:44] VITALS: BP 147/77
--- NOTE | 2019-11-07 16:04 | NUR ---
SPOKE WITH DAUGHTER, TANYA AND UPDATED FAMILY ON PT'S CONDITION. PT IS FEVER FREE AND RESTING COMFORTABLY IN BED. PT ABLE TO AMBULATE IN ROOM TO TOILET. ENCOURAGE PT TO CALL FOR ASSISTANCE WHEN NEEDED. CALL LIGHT IS WITHIN REACH.
[2019-11-07 16:50] VITALS: BP 173/84
[2019-11-07 20:25] VITALS: BP 161/78
--- NOTE | 2019-11-08 03:02 | NUR ---
PT RESTING COMFORTABLY IN BED. NO S/S OF DISTRESS OBSERVED. PROVIDED ICE PER REQUEST. NO FURTHER NEEDS EXPRESSED. WILL CPOC.
[2019-11-08 07:03] LABS: ALBUMIN 2.4 g/dL (3.4-5.0); ALKALINE PHOSPHATASE 185 U/L (30-120); ALT (SGPT) 128 U/L (10-68); BILIRUBIN - DIRECT 0.09 mg/dL (0.00-0.30); BILIRUBIN - INDIRECT 0.28 mg/dL (0.00-1.00); BILIRUBIN - TOTAL 0.37 mg/dL (0.2-1.3); CALC OSMOLALITY 282 mosm/kg (275-300); CALCIUM 7.9 mg/dL (8.5-10.1); CARBON DIOXIDE 27.4 mmol/L (21.0-32.0); CHLORIDE - SERUM 103 mmol/L (98-107); CREATININE - SERUM 0.7 mg/dL (0.6-1.3); GLUCOSE 154 mg/dL (74-106); MAGNESIUM - SERUM 1.9 mg/dL (1.8-2.4); PHOSPHOROUS 3.3 mg/dL (2.5-4.9); POTASSIUM - SERUM 3.5 mmol/L (3.5-5.1); PROTEIN - SERUM 6.5 g/dL (6.4-8.2); SODIUM 140 mmol/L (136-145); UREA NITROGEN 15 mg/dL (7-18); eGFR NON AFRICAN AMERICAN 88 mL/min (90-120)
[2019-11-08 09:31] VITALS: BP 151/85
[2019-11-08 11:34] LABS: BASOPHILS 0.1 % (0-2); EOSINOPHILS 0 % (0-7); HEMATOCRIT 37.1 % (36.0-48.0); HEMOGLOBIN 12.2 g/dL (12-16); IMMATURE GRANULOCYTES 0.4 % (0-5); LYMPHOCYTES 10.3 % (15-50); MCHC 32.9 g/dL (31.0-37.0); MCV 91.2 fL (80.0-100.0); MEAN PLATELET VOLUME 9.4 fL (7.4-10.4); MONOCYTES 4.1 % (2-11); NEUTROPHILS 85.1 % (40-80); RBC 4.07 10x6/uL (4.00-5.40); RDW 13.2 % (11.5-14.5)
[2019-11-08 11:35] LABS: PLATELET COUNT 355 10x3/uL (130-400)
[2019-11-08 13:30] VITALS: BP 153/79
[2019-11-08 16:22] VITALS: BP 164/80
--- NOTE | 2019-11-08 19:00 | NUR ---
PT IS OX4 BUT ANXIOUS PT HAS A FEW NEEDS SEEN TO PT IS UPSET STATING IV HURTS WHEN WE GIVE IVPB WILL RUN SLOW POSSIBLE BED LOW AND LOCKED DEREK LIGHT IS WITH PT
--- NOTE | 2019-11-08 21:30 | NUR ---
PT CO SOB LCTA RESP ALERTED SPO2 96%
--- NOTE | 2019-11-09 04:51 | NUR ---
I have reviewed this patient and I concur with the Shift Assessment completed by the Licensed Practical Nurse today this shift.
[2019-11-09 07:22] LABS: BASOPHILS 0.1 % (0-2); EOSINOPHILS 0.1 % (0-7); HEMATOCRIT 35.2 % (36.0-48.0); HEMOGLOBIN 11.5 g/dL (12-16); IMMATURE GRANULOCYTES 0.6 % (0-5); LYMPHOCYTES 17.9 % (15-50); MCH 29.3 pg (26.0-34.0); MCHC 32.7 g/dL (31.0-37.0); MCV 89.6 fL (80.0-100.0); MEAN PLATELET VOLUME 9.2 fL (7.4-10.4); MONOCYTES 6.8 % (2-11); NEUTROPHILS 74.5 % (40-80); PLATELET COUNT 378 10x3/uL (130-400); RBC 3.93 10x6/uL (4.00-5.40); RDW 12.9 % (11.5-14.5)
[2019-11-09 07:27] LABS: D-DIMER-QUANTITATIVE 0.37 ug/mLFEU (0.20-0.54)
[2019-11-09 07:34] LABS: WBC 7.3 10x3/uL (4.8-10.8)
[2019-11-09 09:16] LABS: C-REACTIVE PROTEIN 11.3 mg/dL (0.0-0.9); CALC OSMOLALITY 280 mosm/kg (275-300); CALCIUM 8.1 mg/dL (8.5-10.1); CARBON DIOXIDE 28.8 mmol/L (21.0-32.0); CHLORIDE - SERUM 102 mmol/L (98-107); CREATININE - SERUM 0.8 mg/dL (0.6-1.3); FERRITIN 533 ng/mL (3-244); GLUCOSE 140 mg/dL (74-106); LDH 323 U/L (81-234); MAGNESIUM - SERUM 1.8 mg/dL (1.8-2.4); PHOSPHOROUS 3.5 mg/dL (2.5-4.9); POTASSIUM - SERUM 3.3 mmol/L (3.5-5.1); SODIUM 139 mmol/L (136-145); UREA NITROGEN 14 mg/dL (7-18); eGFR NON AFRICAN AMERICAN 75 mL/min (90-120)
[2019-11-09 10:01] VITALS: BP 181/84
--- NOTE | 2019-11-09 19:00 | NUR ---
ALERT AND AWAKE AND NEEDS SEEN TO PT IS REFUSING CARE FROM MALE STAFF WILL ALLOW ME TO GIVE MEDS I WILL ATTEMPT TO PROVIDE FEMALE ASSISTANCE IF STAFF ALLOWS
[2019-11-10 07:11] LABS: ALBUMIN 2.4 g/dL (3.4-5.0); ALKALINE PHOSPHATASE 174 U/L (30-120); ALT (SGPT) 124 U/L (10-68); BILIRUBIN - DIRECT 0.07 mg/dL (0.00-0.30); BILIRUBIN - INDIRECT 0.21 mg/dL (0.00-1.00); BILIRUBIN - TOTAL 0.28 mg/dL (0.2-1.3); CALCIUM 8.3 mg/dL (8.5-10.1); CARBON DIOXIDE 28.9 mmol/L (21.0-32.0); CHLORIDE - SERUM 101 mmol/L (98-107); CREATININE - SERUM 0.8 mg/dL (0.6-1.3); MAGNESIUM - SERUM 1.7 mg/dL (1.8-2.4); PHOSPHOROUS 3.7 mg/dL (2.5-4.9); PROTEIN - SERUM 6.9 g/dL (6.4-8.2); SODIUM 137 mmol/L (136-145); eGFR NON AFRICAN AMERICAN 75 mL/min (90-120)
[2019-11-10 07:14] LABS: CALC OSMOLALITY 283 mosm/kg (275-300); GLUCOSE 241 mg/dL (74-106); UREA NITROGEN 18 mg/dL (7-18)
[2019-11-10 07:18] LABS: BASOPHILS 0.1 % (0-2); EOSINOPHILS 0.1 % (0-7); HEMATOCRIT 34.2 % (36.0-48.0); HEMOGLOBIN 11.5 g/dL (12-16); IMMATURE GRANULOCYTES 0.4 % (0-5); LYMPHOCYTES 20.6 % (15-50); MCH 29.4 pg (26.0-34.0); MCHC 33.6 g/dL (31.0-37.0); MCV 87.5 fL (80.0-100.0); MEAN PLATELET VOLUME 9.3 fL (7.4-10.4); MONOCYTES 6.8 % (2-11); PLATELET COUNT 441 10x3/uL (130-400); RBC 3.91 10x6/uL (4.00-5.40); RDW 12.8 % (11.5-14.5); WBC 6.8 10x3/uL (4.8-10.8)
[2019-11-10 07:48] VITALS: BP 177/79
--- NOTE | 2019-11-10 09:35 | NUR ---
RECEIVE REPORT AT 0715. RESTING IN BED WITH NO NEEDS AT THIS TIME. ABLE TO AMBULATE TO THE RESTROOM. STATES SHE JUST FEELS WEAK. OXYGEN AT 3L NC. WILL CONTINUE CURRENT PLAN OF CARE AND SAFETY PRECAUTIONS.
[2019-11-10 12:16] VITALS: BP 179/90
--- NOTE | 2019-11-10 13:40 | NUR ---
Nutrition Follow-up: Pt remains in droplet isolation; covid-19 +. Per GI, pt with poor appetite and ongoing diarrhea; noted testing for CDT ordered. Diet: Diabetic Wt: 181.8# (11/06) Labs noted; K+ 3.0, Glu 241, Ca 8.3, Mg 1.7, Alb 2.4 Meds noted: Humalog, Zinc Sulfate, vitamin D, vitamin C, NS @ 75, electrolyte protocol -Encourage PO intake and honor food preferences within diet restrictions. -Offer Glucerna if avg PO intake <50%. -Monitor wt; noted daily wts ordered. -RD following.
[2019-11-10 15:17] VITALS: BP 170/83
--- NOTE | 2019-11-10 15:17 | NUR ---
IV D/C, TIP INTACT. WHEELED DOWN TO EMERGENCY EXIT VIA WHEELCHAIR. FAMILY PICKED UP. REMAINS FREE FROM INJURY. DISCHARGE INSTRUCTIONS GIVEN VERBALLY AND HANDOUTS GIVEN.
[2019-11-10 18:41] VITALS: BP 165/77
--- NOTE | 2019-11-10 18:58 | NUR ---
DELEGATING PLASMA TO ONCOMING NURSE JESÚS DON.
--- NOTE | 2019-11-10 22:23 | NUR ---
LEEANNE AND RECEIVED CALL BACK FROM DR. ZUNIGA, PATIENT STATES HE TOLD HER SH DIDNT HAVE TO HAVE PLASMA TONIGHT, HE VERIFED WITH ME THAT SHE CAN WAIT UNTIL TOMOORW AFTER LABS ARE DRAWN TO RECEIVE IF NEEDED.
[2019-11-11 02:56] VITALS: BP 165/70
[2019-11-11 05:25] VITALS: BP 158/69
[2019-11-11 09:14] VITALS: BP 152/86
[2019-11-11 10:00] LABS: ALBUMIN 2.7 g/dL (3.4-5.0); ALKALINE PHOSPHATASE 164 U/L (30-120); BILIRUBIN - DIRECT 0.13 mg/dL (0.00-0.30); BILIRUBIN - TOTAL 0.43 mg/dL (0.2-1.3); CALCIUM 8.1 mg/dL (8.5-10.1); CARBON DIOXIDE 29.6 mmol/L (21.0-32.0); CHLORIDE - SERUM 99 mmol/L (98-107); CREATININE - SERUM 0.8 mg/dL (0.6-1.3); PROTEIN - SERUM 7.5 g/dL (6.4-8.2); SODIUM 136 mmol/L (136-145); eGFR NON AFRICAN AMERICAN 75 mL/min (90-120)
[2019-11-11 10:04] LABS: ALT (SGPT) 90 U/L (10-68); CALC OSMOLALITY 274 mosm/kg (275-300); GLUCOSE 149 mg/dL (74-106); UREA NITROGEN 12 mg/dL (7-18)
[2019-11-11 16:00] VITALS: BP 156/79
[2019-11-11 18:48] VITALS: BP 156/79
--- NOTE | 2019-11-11 21:00 | NUR ---
PATIENT IS SITTING IN CHAIR. SHE IS ON ROOM AIR. SHE IS ALERT AND ORIENTED. I TALKED WITH PATIENT ABOUT GETTING PLASMA. SHE TOLD ME DR. ZUNIGA TOLD HER SHE DID NOT NEED THE PLASMA. I CALLED DR. ZUNIGA AND CONFIRMED THAT SHE WOULD NOT NEED THE PLASMA. PLASMA WAS DISCONTINUED.
[2019-11-11 23:10] VITALS: BP 155/75
--- NOTE | 2019-11-12 03:16 | NUR ---
PATIENT IS SLEEPING IN BED. SHE GETS UP AD TANA. SHE IS ON ROOM AIR. WE WILL CONTINUE HER RESPIRATORY STATUS.
[2019-11-12 04:00] VITALS: BP 175/90
[2019-11-12 05:11] LABS: BASOPHILS 0 % (0-2); EOSINOPHILS 0 % (0-7); IMMATURE GRANULOCYTES 0.6 % (0-5); LYMPHOCYTES 13.1 % (15-50); MCH 29.9 pg (26.0-34.0); MCHC 34.4 g/dL (31.0-37.0); MEAN PLATELET VOLUME 9.3 fL (7.4-10.4); MONOCYTES 3.1 % (2-11); NEUTROPHILS 83.2 % (40-80); PLATELET COUNT 485 10x3/uL (130-400); RDW 12.9 % (11.5-14.5)
[2019-11-12 05:27] LABS: HEMATOCRIT 42.2 % (36.0-48.0); HEMOGLOBIN 14.5 g/dL (12-16); RBC 4.85 10x6/uL (4.00-5.40)
[2019-11-12 05:46] LABS: ALBUMIN 3.1 g/dL (3.4-5.0); ALKALINE PHOSPHATASE 190 U/L (30-120); ALT (SGPT) 95 U/L (10-68); BILIRUBIN - INDIRECT 0.25 mg/dL (0.00-1.00); BILIRUBIN - TOTAL 0.35 mg/dL (0.2-1.3); CALCIUM 8.9 mg/dL (8.5-10.1); CARBON DIOXIDE 27.2 mmol/L (21.0-32.0); CHLORIDE - SERUM 98 mmol/L (98-107); CREATININE - SERUM 0.8 mg/dL (0.6-1.3); PHOSPHOROUS 4.2 mg/dL (2.5-4.9); PROTEIN - SERUM 8.4 g/dL (6.4-8.2); SODIUM 136 mmol/L (136-145); UREA NITROGEN 14 mg/dL (7-18); eGFR NON AFRICAN AMERICAN 75 mL/min (90-120)
[2019-11-12 05:47] LABS: CALC OSMOLALITY 282 mosm/kg (275-300); GLUCOSE 272 mg/dL (74-106); POTASSIUM - SERUM 3.6 mmol/L (3.5-5.1)
[2019-11-12 07:41] VITALS: BP 169/85
[2019-11-12] MEDS ORDERED: ZITHROMAX250 MG PO (10:34)
[2019-11-12] MEDS ORDERED: DECADRON4 MG PO (10:34)
--- NOTE | 2019-11-12 12:36 | MORECARE ---
CASE MANAGEMENT DISCHARGE SUMMARY PATIENT: ANDREAS CORLEY UNIT: [id number] ADM DATE: 11/06/19 AGE: 69 : 51 SEX: F ROOM/BED: D.5139 AUTHOR: JITENDRA MARTIN PHYSICIAN: REFERRING PHYSICIAN: NARCISA SHEETS MD DATE OF SERVICE: 11/12/19 Discharge Plan Patient Name: ANDREAS CORLEY Facility: [facility]:[place] : 1950 Planned Disposition: Home Health Service Anticipated Discharge Date: Discharge Date: Expected LOS: Initial Reviewer: [email or web address] Initial Review Date: 11/06/2019 Generated: 11/12/19 1:35 pm Comments DCP- Discharge Planning Updated by [email or web address]: Dalila Jimenes on 11/12/19 11:[address] CM spoke with patient via phone (isolation) regarding DC plans. Patient lives independently with her , Rolf Corley ([phone])PCP: Dr. Bwoman. Pharmacy: [facility]. DME: Nebulizer, Walker, cane, w/c, shower bench. Patient states she has had C-Diff for several months and is very weak. CM discussed HHS, Rehab, SNF. Patient is in agreement to HHS upon DC. Spouse will drive patient home upon DC. [facility]. Patient Name: ANDREAS CORLEY Page [phone] at 1236 All edits/amendments must be made on the electronic document DICTATION DATE: 11/12/19 1235 FOAM TANK LAMINATOR: WILFRED 11/12/19 1235 RPT#: [id number] DC DATE: STATUS: ADM IN [facility] [address] [place] [address] END OF REPORT
--- NOTE | 2019-11-12 12:43 | MORECARE ---
CASE MANAGEMENT DISCHARGE SUMMARY PATIENT: ANDREAS CORLEY UNIT: [id number] ADM DATE: 11/06/19 AGE: 69 : 51 SEX: F ROOM/BED: D.4857 AUTHOR: JITENDRA MARTIN PHYSICIAN: REFERRING PHYSICIAN: NARCISA SHEETS MD DATE OF SERVICE: 11/12/19 Discharge Plan Patient Name: ANDREAS CORLEY [facility] : 1950 Planned Disposition: Home Health Service Anticipated Discharge Date: Discharge Date: Expected LOS: Initial Reviewer: [email or web address] Initial Review Date: 11/06/2019 Generated: 11/12/19 1:42 pm Comments DCP- Discharge Planning Updated by [email or web address]: Dalila Jimenes on 11/12/19 11:[address] CM spoke with patient via phone (isolation) regarding DC plans. Patient lives independently with her , Rolf Corley ([phone])PCP: Dr. Bowman. [facility]. DME: Nebulizer, Walker, cane, w/c, shower bench. Patient states she has had C-Diff for several months and is very weak. CM discussed HHS, Rehab, SNF. Patient is in agreement to HHS upon DC. Spouse will drive patient home upon DC. CM will follow and assist [facility] DC plans/needs. Last DP export: 11/12/19 11:35 a Patient Name: ANDREAS CORLEY Page [id number] at 1243 All edits/amendments must be made on the electronic document DICTATION DATE: 11/12/19 1242 [employer] AX CONSULTANT: WILFRED 11/12/19 1242 RPT#: [id number] DC DATE: STATUS: ADM IN [facility] [address] [place] [address] END OF REPORT
--- NOTE | 2019-11-12 13:58 | NUR ---
PT INFORMED OF DISCHARGE ORDER BUT STATES DR ZUNIGA WASN'T READY FOR HER TO BE DISCHARGED. HOLDING FOR NOW FOR CLARIFICATION.
[2019-11-12 15:42] VITALS: BP 173/82
--- NOTE | 2019-11-12 16:30 | MORECARE ---
CASE MANAGEMENT DISCHARGE SUMMARY PATIENT: ANDREAS CORLEY UNIT: [id number] ADM DATE: 11/06/19 AGE: 69 : 51 SEX: F ROOM/BED: D.7958 AUTHOR: JITENDRA MARTIN PHYSICIAN: REFERRING PHYSICIAN: NARCISA SHEETS MD DATE OF SERVICE: 11/12/19 Discharge Plan Patient Name: ANDREAS CORLEY Facility: [facility]:[place] : 1950 Planned Disposition: Home Health Service Anticipated Discharge Date: Discharge Date: Expected LOS: Initial Reviewer: [email or web address] Initial Review Date: 11/06/2019 Generated: 11/12/19 5:30 pm Comments DCP- Discharge Planning Updated by [email or web address]: Dalila Jimenes on 11/12/19 11:[address] CM spoke with patient via phone (isolation) regarding DC plans. Patient lives independently with her , Rolf Corley ([phone])PCP: Dr. Bowman. [facility]. DME: Nebulizer, Walker, cane, w/c, shower bench. Patient states she has had C-Diff for several months and is very weak. CM discussed HHS, Rehab, SNF. Patient is in agreement to HHS upon DC. Spouse will drive patient home upon DC. CM will follow and assist [facility] DC plans/needs. Coverage Notice Reviewer: [email or web address] - Dalila Jimenes Notice Issued Date-Time: 11/12/2019 16:28 Notice Type: Patient Choice Letter Notice Delivered To: Patient Relationship to Patient: Self Hand Engraver Name: Andreas Corley Delivery Method: - Kristine Days: Prior Verbal Notification: Recipient Understood Notice: Recipient Signature: Med Rec Note Co-signed by Attending: Coverage Notice Comment: Last DP export: 11/12/19 11:43 a Patient Name: ANDREAS CORLEY Page [phone] at 1630 All edits/amendments must be made on the electronic document DICTATION DATE: 11/12/19 1630 STRUCTURAL STEEL ENGINEER: WILFRED 11/12/19 1630 RPT#: [id number] DC DATE: STATUS: ADM IN [facility] [address] [place] [address] END OF REPORT
--- NOTE | 2019-11-12 16:40 | MORECARE ---
CASE MANAGEMENT DISCHARGE SUMMARY PATIENT: ANDREAS CORLEY UNIT: [id number] ADM DATE: 11/06/19 AGE: 69 : 51 SEX: F ROOM/BED: D.3120 AUTHOR: JITENDRA MARTIN PHYSICIAN: REFERRING PHYSICIAN: NARCISA SHEETS MD DATE OF SERVICE: 11/12/19 Discharge Plan Patient Name: ANDREAS CORLEY Facility: [facility]:[place] : 1950 Planned Disposition: Home Health Service Anticipated Discharge Date: Discharge Date: Expected LOS: Initial Reviewer: [email or web address] Initial Review Date: 11/06/2019 Generated: 11/12/19 5:40 pm Comments DCP- Discharge Planning Updated by [email or web address]: Dalila Jimenes on 11/12/19 3:[address] CM spoke with patient via phone (isolation) regarding DC plans. Patient lives independently with her , Rolf Corley ([phone])PCP: Dr. Bowman. Pharmacy: [facility]. DME: Nebulizer, Walker, cane, w/c, shower bench. Patient states she has had C-Diff for several months and is very weak. CM discussed HHS, Rehab, SNF. Patient is in agreement to HHS upon DC. Spouse will drive patient home upon DC. CM will follow and assist [facility] DC plans/needs. Patient choice for [facility] delivered to patient's room per nursing. Coverage Notice Reviewer: [id number] - Dalila Jimenes Notice Issued Date-Time: 11/12/2019 16:28 Notice Type: Patient Choice Letter Notice Delivered To: Patient Relationship to Patient: Self Supervisor Laboratory Name: Andreas Corley Delivery Method: PHONE - Phone Kristine Days: Prior Verbal Notification: Recipient Understood Notice: Yes Recipient Signature: Yes Med Rec Note Co-signed by Attending: Coverage Notice Comment: CM contacted patient via phone (isolation) regarding HHS, patient is in agreement to [facility]. Patient choice will be delivered to patient's room by her nurse. Last DP export: 11/12/19 3:31 p Patient Name: ANDREAS CORLEY Page [phone] at 1640 All edits/amendments must be made on the electronic document DICTATION DATE: 11/12/19 1640 ELECTRONIC SCALE SUBASSEMBLER: WILFRED 11/12/19 1640 RPT#: [id number] DC DATE: STATUS: ADM IN [facility] [address] [place] [address] END OF REPORT
--- NOTE | 2019-11-12 17:15 | NUR ---
PT'S FSBS 479 ONE HAND, 511 OTHER HAND. PRANEETH CALLED AND ORDERS TO CHANGE S/S AND INCREASE TO Q4 HR FSBS CHECKS. COVERED WITH NEW SCALE.
--- NOTE | 2019-11-12 19:59 | NUR ---
REPORT RECEIVED, WILL CONT POC. PT A&O, UP IN CHAIR ON THE PHONE WITH FAMILY. NO S/S OF DISTRESS OBSERVED. RR EVEN AND UNLABORED ON RA. PT EXPRESSES ANXIETY ABOUT BEING DISCHARGED TOMORROW. ENCOURAGED PT TO IDENTIFY CAUSES FOR ANXIETY WHEN PT RETURNS HOME AND TO EXPRESS THOSE CONCERNS WITH ME. PT EXPRESSED CONCERN ABOUT BEING UNSURE OF HOW TO TAKE HER MEDS. WILL CONSULT WITH RT GLADYS ABOUT GOING OVER RESPIRATORY MEDS TO REDUCE PTS ANXIETY. PT DENIES FURTHER NEEDS AT THIS TIME. CALL LIGHT IN REACH, BED LOCKED AND LOWERED. WILL CTOM. ASSESSMENT COMPLETED AT THIS TIME.
[2019-11-12 21:35] VITALS: BP 182/97
[2019-11-13 01:24] VITALS: BP 164/89
[2019-11-13 04:00] VITALS: BP 163/88
[2019-11-13 07:50] VITALS: BP 160/91
[2019-11-13] MEDS ORDERED: VENTOLIN HFA [SP8 GM INH (09:56)
[2019-11-13] MEDS ORDERED: PULMICORT0.5 MG/21 INH (10:03)
[2019-11-13 10:40] VITALS: BP 158/85
--- NOTE | 2019-11-13 11:29 | MORECARE ---
CASE MANAGEMENT DISCHARGE SUMMARY PATIENT: ANDREAS CORLEY UNIT: [id number] ADM DATE: 11/06/19 AGE: 69 : 51 SEX: F ROOM/BED: D.3889 AUTHOR: JITENDRA MARTIN PHYSICIAN: REFERRING PHYSICIAN: NARCISA SHEETS MD DATE OF SERVICE: 11/13/19 Discharge Plan Patient Name: ANDREAS CORLEY Facility: [facility]:[place] : 1950 Planned Disposition: Home Health Service Anticipated Discharge Date: Discharge Date: Expected LOS: Initial Reviewer: [email or web address] Initial Review Date: 11/06/2019 Generated: 11/13/19 12:29 pm Comments DCP- Discharge Planning Updated by [email or web address]: Dalila Jimenes on 11/12/19 3:[address] CM spoke with patient via phone (isolation) regarding DC plans. Patient lives independently with her , Rolf Corley ([phone])PCP: Dr. Bowman. [facility]acy[facility]. DME: Nebulizer, Walker, cane, w/c, shower bench. Patient states she has had C-Diff for several months and is very weak. CM discussed HHS, Rehab, SNF. Patient is in agreement to HHS upon DC. Spouse will drive patient home upon DC. CM will follow and assist [facility] DC plans/needs. Patient choice for [facility] delivered to patient's room per nursing. Coverage Notice Reviewer: [id number] - Dalila Jimenes Notice Issued Date-Time: 11/12/2019 16:28 Notice Type: Patient Choice Letter Notice Delivered To: Patient Relationship to Patient: Self Elevator Operator Name: Andreas Corley Delivery Method: PHONE - Phone Kristine Days: Prior Verbal Notification: Recipient Understood Notice: Yes Recipient Signature: Yes Med Rec Note Co-signed by Attending: Coverage Notice Comment: CM contacted patient via phone (isolation) regarding HHS, patient is in agreement to [facility]. Patient choice will be delivered to patient's room by her nurse. Last DP export: 11/12/19 3:40 p Patient Name: ANDREAS CORLEY Page [phone] at 1129 All edits/amendments must be made on the electronic document DICTATION DATE: 11/13/191128 FUR BLOWING MACHINE ATTENDANT: WILFRED 11/13/191128 RPT#: [id number] DC DATE: STATUS: ADM IN [facility] [address] [place] [address] END OF REPORT
--- NOTE | 2019-11-13 11:37 | MORECARE ---
CASE MANAGEMENT DISCHARGE SUMMARY PATIENT: ANDREAS CORLEY UNIT: [id number] ADM DATE: 11/06/19 AGE: 69 : 51 SEX: F ROOM/BED: D.9395 AUTHOR: JITENDRA MARTIN PHYSICIAN: REFERRING PHYSICIAN: NARCISA SHEETS MD DATE OF SERVICE: 11/13/19 Discharge Plan Patient Name: ANDREAS CORLEY Facility: [facility]:[place] : 1950 Planned Disposition: Home Health Service Anticipated Discharge Date: Discharge Date: Expected LOS: Initial Reviewer: [email or web address] Initial Review Date: 11/06/2019 Generated: 11/13/19 12:37 pm Comments DCP- Discharge Planning Updated by [id number]: Dalila Jimenes on 11/12/19 3:[address] CM spoke with patient via phone (isolation) regarding DC plans. Patient lives independently with her , Rolf Corley ([phone])PCP: Dr. Bowman. Pharmacy: [facility]. DME: Nebulizer, Walker, cane, w/c, shower bench. Patient states she has had C-Diff for several months and is very weak. CM discussed HHS, Rehab, SNF. Patient is in agreement to HHS upon DC. Spouse will drive patient home upon DC. CM will follow and assist [facility] DC plans/needs. Patient choice for [facility] delivered to patient's room per nursing. Coverage Notice Reviewer: [email or web address] - Dalila Jimenes Notice Issued Date-Time: 11/12/2019 16:28 Notice Type: Patient Choice Letter Notice Delivered To: Patient Relationship to Patient: Self Trade Promotion Analyst Name: Andreas Corley Delivery Method: PHONE - Phone Kristine Days: Prior Verbal Notification: Recipient Understood Notice: Yes Recipient Signature: Yes Med Rec Note Co-signed by Attending: Coverage Notice Comment: CM contacted patient via phone (isolation) regarding HHS, patient is in agreement to [facility]. Patient choice will be delivered to patient's room by her nurse. Last DP export: 11/13/19 10:29 a Patient Name: ANDREAS CORLEY Page [phone] at 1137 All edits/amendments must be made on the electronic document DICTATION DATE: 11/13/191136 ADDICTION THERAPIST: WILFRED 11/13/191136 RPT#: [id number] DC DATE: STATUS: ADM IN [facility] [address] [place] [address] END OF REPORT
--- NOTE | 2019-11-13 11:46 | MORECARE ---
CASE MANAGEMENT DISCHARGE SUMMARY PATIENT: ADNREAS CORLEY UNIT: [id number] ADM DATE: 11/06/19 AGE: 69 : 52 SEX: F ROOM/BED: D.7885 AUTHOR: VERONICA,DOC PHYSICIAN: REFERRING PHYSICIAN: NARCISA SHEETS MD DATE OF SERVICE: 11/13/19 Discharge Plan Patient Name: ANDREAS CORLEY Facility: [facility]:[place] : 1950 Planned Disposition: Home Health Service Anticipated Discharge Date: Discharge Date: Expected LOS: Initial Reviewer: [email or web address] Initial Review Date: 11/06/2019 Generated: 11/13/19 12:45 pm Comments DCP- Discharge Planning Updated by [email or web address]: Dalila Jimenes on 11/12/19 3:[address] CM spoke with patient via phone (isolation) regarding DC plans. Patient lives independently with her , Rolf Corley ([phone])PCP: Dr. Bowman. [facility]acy[facility]. DME: Nebulizer, Walker, cane, w/c, shower bench. Patient states she has had C-Diff for several months and is very weak. CM discussed HHS, Rehab, SNF. Patient is in agreement to HHS upon DC. Spouse will drive patient home upon DC. CM will follow and assist [facility] DC plans/needs. Patient choice for [facility] delivered to patient's room per nursing. DCPIA - Discharge Planning Initial Assessment Updated by [id number]: Adriana Boyd on 11/13/19 11:41 am * Is the patient Alert and Oriented? Yes * How many steps to enter\exit or inside your home? 012 * PCP SAJI * Pharmacy [facility] * Preadmission Environment Home with Family * ADLs Independent * Equipment Nebulizer * List name and contact numbers for known caregivers / representatives who currently or will assist patient after discharge: ROLF CORLEY [phone] * Verbal permission to speak to the caregivers and representatives has been obtained from the patient. Yes * Community resources currently utilized None * Additional services required to return to the preadmission environment? No * Can the patient safely return to the preadmission environment? Yes * Has this patient been hospitalized within the prior 30 days at any hospital? No Coverage Notice Reviewer: [id number] Aby Jimenes Notice Issued Date-Time: 11/12/2019 16:28 Notice Type: Patient Choice Letter Notice Delivered To: Patient Relationship to Patient: Self Information Security Name: Andreas Corley Delivery Method: PHONE - Phone Kristine Days: Prior Verbal Notification: Recipient Understood Notice: Yes Recipient Signature: Yes Med Rec Note Co-signed by Attending: Coverage Notice Comment: CM contacted patient via phone (isolation) regarding HHS, patient is in agreement to [facility]. Patient choice will be delivered to patient's room by her nurse. Last DP export: 11/13/19 10:37 a Patient Name: ANDREAS CORLEY Page [id number] at 1146 All edits/amendments must be made on the electronic document DICTATION DATE: 11/13/19 1145 SERVICE STATION CASHIER: WILFRED 11/13/19 1145 RPT#: [id number] DC DATE: STATUS: ADM IN [facility] [address] [place] [address] END OF REPORT
--- NOTE | 2019-11-13 11:55 | MORECARE ---
CASE MANAGEMENT DISCHARGE SUMMARY PATIENT: ANDREAS CORLEY UNIT: [id number] ADM DATE: 11/06/19 AGE: 69 : 51 SEX: F ROOM/BED: D.8495 AUTHOR: JITENDRA MARTIN PHYSICIAN: REFERRING PHYSICIAN: NARCISA SHEETS MD DATE OF SERVICE: 11/13/19 Discharge Plan Patient Name: ANDREAS CORLEY Facility: [facility]:[place] : 1950 Planned Disposition: Home Health Service Anticipated Discharge Date: Discharge Date: Expected LOS: Initial Reviewer: [id number] Initial Review Date: 11/06/2019 Generated: 11/13/19 12:55 pm Comments DCP- Discharge Planning Updated by [email or web address]: Adriana Boyd on 11/13/19 10:[address] Patient Name: ANDREAS CORLEY Encounter No: [id number] : 1950 Primary Insurance: MEDICARE A & B Anticipated DC Date: Planned Disposition: Home Health Service External Planned Provider: : DCP follow-up note: CM called pt room to speak with patient about discharge. Pt states she will go home and quarantine downstairs. Pt states she has been independent at home and has been independent in her hospital room. Patient states she does not need home health. declination verbalized. DC IMM explained via phone. Pt verbalized understanding. Copy left in room for pt. Patient and family in agreement with discharge plan. Case management will follow and assist as needed. Adriana Boyd DCP- Discharge Planning Updated by [email or web address]: Dalila Jimenes on 11/12/19 3:[address] CM spoke with patient via phone (isolation) regarding DC plans. Patient lives independently with her , Rolf Corley ([phone])PCP: Dr. Bowman. Pharmacy: [facility]. DME: Nebulizer, Walker, cane, w/c, shower bench. Patient states she has had C-Diff for several months and is very weak. CM discussed HHS, Rehab, SNF. Patient is in agreement to HHS upon DC. Spouse will drive patient home upon DC. CM will follow and assist [facility] DC plans/needs. Patient choice for [facility] delivered to patient's room per nursing. DCPIA - Discharge Planning Initial Assessment Updated by [id number]: Adriana Boyd on 11/13/19 11:41 am * Is the patient Alert and Oriented? Yes * How many steps to enter\exit or inside your home? 0/12 * PCP SAJI * Pharmacy [facility] * Preadmission Environment Home with Family * ADLs Independent * Equipment Nebulizer * List name and contact numbers for known caregivers / representatives who currently or will assist patient after discharge: ROLF CORLEY [phone] * Verbal permission to speak to the caregivers and representatives has been obtained from the patient. Yes * Community resources currently utilized None * Additional services required to return to the preadmission environment? No * Can the patient safely return to the preadmission environment? Yes * Has this patient been hospitalized within the prior 30 days at any hospital? No Coverage Notice Reviewer: [id number] Aby Jimenes Notice Issued Date-Time: 11/12/2019 16:28 Notice Type: Patient Choice Letter Notice Delivered To: Patient Relationship to Patient: Self Processing Technician Name: Andreas Corley Delivery Method: PHONE - Phone Kristine Days: Prior Verbal Notification: Recipient Understood Notice: Yes Recipient Signature: Yes Med Rec Note Co-signed by Attending: Coverage Notice Comment: CM contacted patient via phone (isolation) regarding HHS, patient is in agreement to [facility]. Patient choice will be delivered to patient's room by her nurse. Reviewer: [id number] Aby Boyd Notice Issued Date-Time: 11/13/2019 11:15 Notice Type: Patient Choice Letter Notice Delivered To: Patient Relationship to Patient: Processing Technician Name: Delivery Method: PHONE - Phone Kristine Days: Prior Verbal Notification: Yes Recipient Understood Notice: Yes Recipient Signature: Med Rec Note Co-signed by Attending: Coverage Notice Comment: pt independent declines home health Reviewer: [id number] Aby Boyd Notice Issued Date-Time: 11/13/2019 11:15 Notice Type: IM Discharge Notice Notice Delivered To: Patient Relationship to Patient: Processing Technician Name: Delivery Method: PHONE - Phone Kristine Days: Prior Verbal Notification: Yes Recipient Understood Notice: Yes Recipient Signature: Med Rec Note Co-signed by Attending: Coverage Notice Comment: dc imm by phone. left with pt. Last DP export: 11/13/19 10:46 a Patient Name: ANDREAS CORLEY Page 90017 at 1155 All edits/amendments must be made on the electronic document DICTATION DATE: 11/13/19 115 CORPORATE EVENTS DIRECTOR: WILFRED 11/13/19 1155 RPT#: [id number] DC DATE: STATUS: ADM IN [facility] [address] [place] [address] END OF REPORT
--- NOTE | 2019-11-13 13:58 | NUR ---
PT'S DISCHARGE INSTRUCTIONS REVIEWED. IV OUT. BAG TO PACK BELONGINGS GIVEN. ON WAY.
== END 2019-11-13 14:21 | disposition home or self-care (01) | DRG 177 ==
LOC: D.ER 15:02 → D.M2 16:56
PROVIDERS: Family Medicine; Internal Medicine Pulmonary Disease; ADMIT Family Medicine Adult Medicine; ATTEND Family Medicine Adult Medicine
PROC: XW033E5 Introduction of Remdesivir Anti-infective into Peripheral Vein, Percutaneous Approach, New Technology Group 5 (ICD-10-PCS; principal; 2019-11-08)
DX: U07.1 COVID-19 (principal); J12.89 Other viral pneumonia; J96.91 Respiratory failure, unspecified with hypoxia; J44.1 Chronic obstructive pulmonary disease with (acute) exacerbation; J44.0 Chronic obstructive pulmonary disease with (acute) lower respiratory infection; I10 Essential (primary) hypertension; E78.5 Hyperlipidemia, unspecified; E03.9 Hypothyroidism, unspecified; F32.9 Major depressive disorder, single episode, unspecified; E11.40 Type 2 diabetes mellitus with diabetic neuropathy, unspecified; D64.9 Anemia, unspecified; Z87.891 Personal history of nicotine dependence